=== PATIENT | female | born 1970 | race Caucasian/White ===

== ENCOUNTER → 2023-11-16 | Outpatient (CLI) | payer OTHER ==
--- NOTE | 2023-12-10 12:47 | MM ---
Reason for Exam: Screening (asymptomatic). Patient History: Menarche at age 14. Postmenopausal. Paternal grandmother had breast cancer. Risk Values: Mirlande 5 year model risk: 0.7%. NCI Lifetime model risk: 6.4%. Prior Study Comparison: No prior studies available for comparison. Tissue Density: The breasts are almost entirely fatty. Findings: Analyzed By CAD. Right breast: There is no suspicious group of microcalcifications or new suspicious mass. Left breast: There is no suspicious group of microcalcifications or new suspicious mass. Overall Assessment: Negative, BI-RAD 1 Management: Screening Mammogram of both breasts in [address] [facility] will attempt to contact patient to return for supplemental views and ultrasound if indicated. Patient should continue monthly self-breast exams. A clinical breast exam by your physician is recommended on an annual basis. This exam should not preclude additional follow-up of suspicious palpable abnormalities. Note on Mirlande scores and lifetime risk: 1. A Mirlande score greater than 3% is considered moderate risk. If this is the case, consider specialist referral to assess eligibility for a risk reducing agent. 2. If overall lifetime risk for the development of breast cancer is 20% or higher, the patient may qualify for future screening with alternating mammogram and breast MRI. Electronically signed and approved by: Hugo Hudson DO
== END | disposition home or self-care (01) ==
LOC: RADMAMWWP 14:03
PROVIDERS: ATTEND Family Medicine
DX: Z12.31 Encounter for screening mammogram for malignant neoplasm of breast (principal); Z80.3 Family history of malignant neoplasm of breast; Z78.0 Asymptomatic menopausal state
CPT/HCPCS: 77063; 77067

== ENCOUNTER → 2023-11-27 | Outpatient (CLI) | payer OTHER ==
--- NOTE | 2023-11-27 17:41 | US ---
EXAMINATION TYPE: US pelvic complete DATE OF EXAM: 11/27/2023 COMPARISON: NONE CLINICAL INDICATION: Female, 53 years old with history of N93.9 ABNORMAL UTERINE AND VAGINAL BLEEDING , UNSPE; Patient states her last period was a couple years ago but then she had some bleeding in Febr uary TECHNIQUE: . Transabdominal sonographic images of the pelvis were acquired. Transvaginal sonographi c images were medically necessary to better assess the following anatomy: ovaries Date of LMP: years ago EXAM MEASUREMENTS: Uterus: 6.9 x 3.6 x 4.0 cm Endometrial Stripe: 1.2 cm Right Ovary: not seen Left Ovary: not seen 1. Uterus: anteverted, heterogeneous with 2.2 x 2.3 x 2.1cm hypoechoic area 2. Endometrium: thickened 3. Right Ovary: not seen due to overlying bowel gas 4. Left Ovary: not seen due to overlying bowel gas 5. Bilateral Adnexa: wnl 6. Posterior cul-de-sac: wnl IMPRESSION: Fibroid changes of the uterus.
== END | disposition home or self-care (01) ==
LOC: RADUSWWP 16:15
PROVIDERS: ATTEND Family Medicine
DX: D25.9 Leiomyoma of uterus, unspecified (principal); N93.9 Abnormal uterine and vaginal bleeding, unspecified
CPT/HCPCS: 76830; 76856

== ENCOUNTER 2024-08-12 10:11 | Day surgery (SDC) | payer OTHER ==
[2024-08-11 10:52] VITALS: BMI 44.8
[2024-08-12 10:39] VITALS: TEMP 97.7
[2024-08-12] MEDS: IV FLUID CONTINUATION 1,000 ML IV ONE (10:49)
[2024-08-12] MEDS: LACTATED RINGERS 1,000 ML IV SCH (10:49)
[2024-08-12] MEDS ORDERED: PROPOFOL 10 MG/ML 20 ML VIAL IV ONE (11:28)
--- NOTE | 2024-08-12 11:48 | P.PCN ---
Date of Procedure: 08/12/24 Procedure(s) Performed: BRIEF HISTORY: Patient is a 54-year-old pleasant white female scheduled for an elective colonoscopy as a part of screening for colon cancer. PROCEDURE PERFORMED: Colonoscopy. PREOPERATIVE DIAGNOSIS: Screening for colon cancer. IV sedation per Anesthesia. PROCEDURE: After informed consent was obtained, the patient, was brought into the endoscopy unit. IV sedation was administered by Anesthesia under continuous monitoring. Digital rectal examination was normal. Initially the Olympus CF-160 flexible video colonoscope was then inserted in the rectum, gradually advanced into the cecum without any difficulty. Careful examination was performed as the scope was gradually being withdrawn. Ileocecal valve and the appendiceal orifice were visualized and appeared normal. Prep was excellent. Mucosa of the cecum, ascending colon, transverse colon, descending colon, sigmoid colon, and rectum appeared normal. Retroflexion was performed in the rectum and no lesions were seen. The patient tolerated the procedure well. IMPRESSION: Normal-appearing colon from rectum to cecum no evidence of colorectal neoplasia. RECOMMENDATIONS: Findings of this examination were discussed with the patient as well as her family. She was advised to have repeat screening colonoscopy in 10 years..
[2024-08-12 12:07] VITALS: BP 131/83; PULSE 77; RESP 18
== END 2024-08-12 12:35 | disposition home or self-care (01) ==
LOC: ORWHC2ENDO 10:11
PROVIDERS: ATTEND Internal Medicine Gastroenterology
DX: Z12.11 Encounter for screening for malignant neoplasm of colon (principal); I10 Essential (primary) hypertension; R91.1 Solitary pulmonary nodule; Z79.899 Other long term (current) drug therapy; Z90.49 Acquired absence of other specified parts of digestive tract; Z98.890 Other specified postprocedural states
CPT/HCPCS: 81025; 84703; 45378; J2704

== ENCOUNTER → 2024-11-07 | Outpatient (CLI) | payer OTHER ==
--- NOTE | 2024-11-07 12:49 | CA ---
Exercise Stress Test Report Name: Holley Alberts Exam Date: 11/07/2024 11:17 Exam Location: [place] Stress Ht (in): 62 Wt (lb): 240 BSA: 2.07 Ordering Phys: Alden Michael MD Referring Phys: Hugo Kearney Technologist: Rom Crabtree Age: 54 Gender: F : 1970 Procedure CPT: Indications: R07.89 other chest pain ICD-10 Codes: Patient History: Chest pain and palpitations Medications: Meds past 24 hrs: Pretest Chest Pain: STRESS TEST Jacinto Protocol Exercise Duration (min:sec): 06:[address] Depressions (mm): Angina Score: Hines Score: Resting HR (bpm): 57 Peak HR (bpm): 152 Resting BP (mmHg): 139 / 76 Peak BP (mmHg): 172 / 74 MPHR: 168 Target HR: 143 % MPHR: 90 METS: 7.1 Total Dose: Peak Dose: Atropine: Double Product: 98128 BP Response: Stress Termination: Reached target heart rate Stress Symptoms: No chest pain or symptoms Stress Summary: ECG ANALYSIS Resting ECG: Stress ECG: CONCLUSIONS Baseline EKG revealed normal sinus rhythm without significant ST-T changes. Patient walked for 6 minutes. Maximal heart rate 152 bpm which is more than 85% of predicted maximal. No angina no arrhythmia no EKG changes to indicate ischemia. This is a negative stress test with fair exercise capacity Dr. Prateek Timmons MD (Electronically Signed) Final Date: 07 November 2024 12:48
== END | disposition home or self-care (01) ==
LOC: RADNMMAIN 10:43
PROVIDERS: ATTEND Internal Medicine Pulmonary Disease
DX: R07.89 Other chest pain (principal); R00.2 Palpitations
CPT/HCPCS: 93017

== ENCOUNTER → 2024-12-22 | Outpatient (CLI) | payer OTHER ==
[2024-12-22 15:40] LABS: Basophils # (A) 0.05 X 10*3/uL (0.00-0.10); Basophils % (A) 0.8 %; Eosinophils # (A) 0.22 X 10*3/uL (0.04-0.35); Eosinophils % (A) 3.5 %; HCT 43.3 % (37.2-46.3); HGB 14.4 g/dL (12.0-15.0); Lymphocytes # (A) 2.06 X 10*3/uL (0.90-5.00); Lymphocytes % (A) 32.4 %; MCHC 33.3 g/dL (32.0-37.0); MCV 93.1 FL (80.0-97.0); Mean Platelet Volume 10.1 FL (9.5-12.2); Monocytes # (A) 0.49 X 10*3/uL (0.20-1.00); Monocytes % (A) 7.7 %; NRBC Per 100 WBC 0 X 10*3/uL (0.00-0.01); Neutrophils # (A) 3.52 X 10*3/uL (1.80-7.70); Neutrophils % (A) 55.3 %; Platelet Count 277 X 10*3/uL (140-440); RBC 4.65 X 10*6/uL (4.10-5.20); RDW 13.5 % (11.5-14.5); WBC 6.36 X 10*3/uL (4.50-10.00)
== END | disposition home or self-care (01) ==
LOC: LABPAT 10:19
PROVIDERS: ATTEND Obstetrics & Gynecology
DX: Z01.818 Encounter for other preprocedural examination (principal); N95.0 Postmenopausal bleeding; I10 Essential (primary) hypertension
CPT/HCPCS: 85025; 93005

== ENCOUNTER 2024-12-29 06:12 | Day surgery (SDC) | payer OTHER ==
[2024-12-26 11:20] VITALS: BMI 44.8
[~2024-12-29 06:12] MED LIST: Pre Op ABX Message 1 EACH MISC MISCELLANE ONE
[2024-12-29] MEDS ORDERED: LIDOCAINE 1% (10MG/ML) FOR IV START INTRADERMA PRN (06:25)
[2024-12-29] MEDS ORDERED: droPERidol 2.5 MG/ML VIAL IVP ONE (06:25)
[2024-12-29] MEDS: IV FLUID CONTINUATION 1,000 ML IV ONE (06:49)
[2024-12-29] MEDS ORDERED: HYDROmorphone 0.5 MG/0.5 ML SYRINGE IVP PRN (07:00)
[2024-12-29] MEDS: DEXAMETHASONE SOD PHOSPHATE 4 MG/ML 1 ML VIAL IV ONE (07:07)
[2024-12-29] MEDS: ONDANSETRON 4 MG/2 ML VIAL IVP ONE (07:07)
[2024-12-29] MEDS: LACTATED RINGERS 1,000 ML IV SCH (07:07)
[2024-12-29] MEDS ORDERED: SUCCINYLCHOLINE CHLORIDE 200 MG/10 ML VIAL IV ONE (07:24)
[2024-12-29] MEDS ORDERED: KETOROLAC 15 MG/ML 1 ML VIAL ONE (07:24)
[2024-12-29] MEDS ORDERED: LIDOCAINE 1% INJ 10MG/ML (20 ML MDV) ONE (07:24)
[2024-12-29] MEDS ORDERED: LIDOCAINE 4% LTA KIT (4 ML) TOPICAL ONE (07:24)
[2024-12-29] MEDS ORDERED: MIDAZOLAM 2 MG/2 ML VIAL ONE (07:24)
[2024-12-29] MEDS ORDERED: fentaNYL (PF) 50 MCG/ML 2 ML AMP ONE (07:24)
[2024-12-29] MEDS ORDERED: PROPOFOL 10 MG/ML 20 ML VIAL IV ONE (07:24)
[2024-12-29 08:19] VITALS: TEMP 97.7
--- NOTE | 2024-12-29 08:28 | P.OP ---
Date of Procedure: 12/29/24 Preoperative Diagnosis: 1. Post-menopausal bleeding 2. Thickened Endometrium Postoperative Diagnosis: Same and Endometrial Polyps Procedure(s) Performed: Hysteroscopy D&C Polypectomy Implants: None Anesthesia: NICKA Surgeon: Josette Mendoza Estimated Blood Loss (ml): 25 IV fluids (ml): 400 Urine output (ml): 100 Pathology: other (endometrial currettings, endometrial polyp) Condition: stable Disposition: floor Indications for Procedure: Ms. Alberts is a 54 year old G0 presenting for Hysteroscopy D&C Polypectomy for post-menopausal and thickened endometrium. Risks, benefits, and alternatives to Hysteroscopy D&C Polypectomy are discussed with the patient including risk of bleeding, infection, damage to surrounding structures. All questions answered. Operative Findings: Large endometrial polyp 5-6 centimeters long occupying nearly all of the endomtrial cavity. Another near the right ostia. Background endometrium appears atrophic. Description of Procedure: Patient is brought to the operating suite and placed in the dorsal lithotomy position. The cervix perineum and lower abdomen are prepped and draped in the usual sterile fashion. Examination under anesthesia reveals an anteverted uterus. Adnexa are negative bilaterally. The bladder is drained for approximately 100 mL of clear yellow urine. The anterior lip of the cervix is grasped with a double toothed tenaculum after the weighted speculum is placed into the vagina. The uterus sounds to a depth of 7 cm in the anteverted position. The Hanks dilators are placed and the cervix was dilated to accomodate the hysteroscope. The hysteroscope was then introduced and with saline infusion the cavity is distended. Two polyps are noted along with atrophic background endometrium. The Myosure is then used to resect the polyps under direct visualization. All sponge needle and instrument counts are correct. Instrumentation is removed from the vagina and the patient is brought to the recovery room in stable condition. Cervix is bleeding at tenaculum sites, so silver nitrate is applied to these sites with good hemostasis. Toradol is given prior to leaving the operative suite. Patient will follow up with me in the office in 2 weeks. Verbal and written instructions are provided.
[2024-12-29 09:26] VITALS: BP 116/75; PULSE 62; RESP 18
== END 2024-12-29 09:42 | disposition home or self-care (01) ==
LOC: OR 06:12
PROVIDERS: ATTEND Obstetrics & Gynecology
DX: N84.0 Polyp of corpus uteri (principal); N95.0 Postmenopausal bleeding
CPT/HCPCS: 81025; 88305; 84132; 58563; J2250; J0330; J1100; J2405; J2003; J3010; J1885; J2704